=== PATIENT | male | born 1945 | race Caucasian/White ===

== ENCOUNTER 2017-07-09 11:37 | Emergency (ER) | payer SELFPAY ==
[2017-07-09 12:09] VITALS: TEMP 98.6
--- NOTE | 2017-07-09 12:28 | C.PDOC ---
History Of Present Illness LIMITED DUE TO DEMENTIA PER FAMILY, CO LEAKING PEG TUBE SINCE YEST. CURRENT PEG PLACED 1 YR AGO. STATES UNABLE TO GET MEDS IN TUBE. OTHERWISE PT AT BASELINE EXAM NONTOXIC NAD APPEARS COMFORTABLE ABD PEG IN PLACE. SOFT NT NO R/G SKIN NO INFXN REMAINDER NEG MDM DISTAL END W LEAKING TUBE CUT OFF, PORT REPLACED. +FLUSHING WO DIFF OR LEAKAGE. WILL XRAY Time Seen by Provider: 07/09/17 12:23 Chief Complaint (Nursing): Medical Clearance History Per: Family History/Exam Limitations: clinical condition (Dementia) Onset/Duration Of Symptoms: Days (1) Past Medical History Reviewed: Historical Data, Nursing Documentation, Vital Signs Vital Signs: Last Vital Signs Temp 98.6 F 07/09/17 11:59 Pulse 67 07/09/17 13:55 Resp 18 07/09/17 13:55 BP 204/108 H 07/09/17 13:55 Pulse Ox 99 07/09/17 13:55 - Medical History PMH: CVA (6 years ago.), HTN - [facility] Procedures INFLUENZA VACCINATION (06/17/13) VACCINATION NEC (06/17/13) Family History: States: No Known Family Hx - Social History Hx Tobacco Use: No Hx Alcohol Use: No Hx Substance Use: No - Immunization History Hx Tetanus Toxoid Vaccination: No Hx Influenza Vaccination: No Hx Pneumococcal Vaccination: No Review Of Systems Review Of Systems: ROS cannot be obtained secondary to pt's inabilty to answer questions. Constitutional: Positive for: Other ((+) leaking peg tube) Physical Exam - Physical Exam Appears: Non-toxic, No Acute Distress Skin: Warm, Dry, No Rash Head: Atraumatic, Normacephalic Eye(s): bilateral: Normal Inspection, PERRL, EOMI Oral Mucosa: Moist Respiratory: Normal Breath Sounds Gastrointestinal/Abdominal: Soft, No Tenderness, No Guarding, No Rebound, Other ((+) peg tube in place, no signs of infection) Extremity: No Swelling Neurological/Psych: Normal Speech, Normal Motor, Other (Patient at baseline as per family) ED Course And Treatment O2 Sat by Pulse Oximetry: 97 (RA) Pulse Ox Interpretation: Normal - Other Rad ABD X-Ray: Interpreted by Me (+CONTRAST GI LUMEN) - Physician Consult Information Time Consulting Physician Contacted: 12:35 Physician Contacted: Shane Sullivan Jr. Outcome Of Conversation: AWARE OF ER FINDINGS AND AGREES W PLAN. WILL FU OUTPT Progress - Data Reviewed Data Reviewed: Lab, Old records Medical Decision Making Medical Decision Making: PLAN: * X-Ray - Abdomen NOTE: DISTAL END W LEAKING TUBE CUT OFF, PORT REPLACED. +FLUSHING WO DIFF OR LEAKAGE. WILL XRAY Disposition Counseled Patient/Family Regarding: Studies Performed, Diagnosis, Need For Followup - Disposition Referrals: Shane Sullivan Jr., MD [Medical Doctor] - Disposition: HOME/ ROUTINE Disposition Time: 13:31 Condition: IMPROVED Instructions: How to Use and Care for Your PEG Tube (ED) Forms: [employer] (Thai) - Clinical Impression Clinical Impression: PEG tube malfunction - Scribe Statement The provider has reviewed the documentation as recorded by the Scribe Yi Joshi Provider Attestation: All medical record entries made by the Scribe were at my direction and personally dictated by me. I have reviewed the chart and agree that the record accurately reflects my personal performance of the history, physical exam, medical decision making, and the department course for this patient. I have also personally directed, reviewed, and agree with the discharge instructions and disposition.
[2017-07-09] MEDS ORDERED: Iohexol 240 (50 ml) PO ONE (12:31)
[2017-07-09] MEDS ORDERED: Iohexol 240 (50 ml) ONE (12:50)
--- NOTE | 2017-07-09 13:34 | RAD ---
HISTORY: PEG PLACEMENT COMPARISON: No prior. FINDINGS: BOWEL: Pathologist as noted: The mL of Omnipaque injected per PEG 15 to 20 minutes prior to this image No bowel obstruction. Contrast in non distended proximal small bowel loops left upper quadrant noted Elsewhere stool retention noted BONES: Thoraco lumbar spondylosis bilateral hip osteoarthrosis OTHER FINDINGS: None. IMPRESSION: Per no contrast per PEG opacifies unremarkable appearing non dilated small bowel loops Unrelated to this -stool retention suggested No bowel obstruction appreciated
[2017-07-09 13:55] VITALS: BP 204/108; PULSE 67; RESP 18
[2017-07-09 15:44] VITALS: O2SAT 97
== END 2017-07-09 16:49 | disposition home or self-care (01) ==
LOC: C.ER 11:37
DX: K94.23 Gastrostomy malfunction (principal); Y84.9 Medical procedure, unspecified as the cause of abnormal reaction of the patient, or of later complication, without mention of misadventure at the time of the procedure
CPT/HCPCS: 74018; 99284; Q9966

== ENCOUNTER 2017-11-29 19:15 | Observation (INO) | payer MEDICAID ==
--- NOTE | 2017-11-29 19:58 | C.PDOC ---
History Of Present Illness 71 year old male with PMHx of CVA 10 years ago with residual right sided hemiplegia, gastrostomy tube and tracheostomy tube. Patient is accompanied by his , as per patient's GT tube has been blocked for the past 2 days as he has been unable to feed or take his BP medications. also reports that patient has has a non productive cough for the past week. Patient's denies fever, chills, SOB, respiratory distress. Chief Complaint (Nursing): Abdominal Pain History Per: EMS, Family History/Exam Limitations: clinical condition Onset/Duration Of Symptoms: Days Current Symptoms Are (Timing): Still Present Location Of Pain/Discomfort: Diffuse Radiation Of Pain To:: None Quality Of Discomfort: Unable To Describe Associated Symptoms: denies: Fever, Nausea, Vomiting Exacerbating Factors: None Recent travel outside of the [place]: No Additional History Per: Patient Past Medical History Reviewed: Historical Data, Nursing Documentation, Vital Signs Vital Signs: Last Vital Signs Temp 98 F 11/30/17 05:23 Pulse 63 11/30/17 05:23 Resp 20 11/30/17 05:23 BP 153/80 H 11/30/17 05:23 Pulse Ox 99 11/30/17 05:23 - Medical History PMH: CVA (6 years ago.), HTN Denies: Chronic Kidney Disease Other Surgeries: gastrostomy and tracheostomy tubes placed - [facility] Procedures INFLUENZA VACCINATION (06/17/13) VACCINATION NEC (06/17/13) Family History: States: Unknown Family Hx - Social History Hx Tobacco Use: No Hx Alcohol Use: No Hx Substance Use: No - Immunization History Hx Tetanus Toxoid Vaccination: No Hx Influenza Vaccination: No Hx Pneumococcal Vaccination: No Review Of Systems Review Of Systems: ROS cannot be obtained secondary to pt's inabilty to answer questions. Physical Exam - Physical Exam Appears: Non-toxic, No Acute Distress, Other (cooperative, aphasic) Skin: Normal Color, Warm, Dry Head: Atraumatic, Normacephalic Eye(s): bilateral: Normal Inspection Oral Mucosa: Moist Neck: Normal ROM, Supple, Other (tracheostomy stoma in place) Chest: Symmetrical Cardiovascular: Rhythm Regular, No Murmur Respiratory: Normal Breath Sounds, No Rales, No Rhonchi, Wheezing (faint expiratory) Gastrointestinal/Abdominal: Soft, No Tenderness, Other (GT stoma in place with surroinding erythema, swelling around the entry site) Extremity: Capillary Refill (< 2 seconds) Extremity: Right: Other (contracted rigth upper extremity, complete paralysis right lower extremity), Bilateral: Normal Color And Temperature Pulses: Right Brachial: Normal, Left Radial: Normal, Left Dorsalis Pedis: Normal , Right Dorsalis Pedis: Normal Neurological/Psych: Oriented x3, Other (aphasic due to CVA 10 years ago) Gait: Unable To Assess ED Course And Treatment - Laboratory Results Result Diagrams: 11/29/17 20:18 11/29/17 20:18 O2 Sat by Pulse Oximetry: 95 (ON RA) Pulse Ox Interpretation: Normal Medical Decision Making Medical Decision Making: Impression: CVA s/p right sided hemiplegia long standing, clogged GT tube. URI complaints Plan: * Labs * GT replacement * CXR * reeval 20:11 - Attempted to remove GT tube however balloon was not deflated due to overall deterioration of GT tube, attempted to aspirate with luer lock syringe with no fluid return. Paged GI fellow. 20:25 - Spoke with GI fellow who recommends patient to be admitted to the Hospital and GI will see patient tomorrow Disposition - Disposition Disposition: HOSPITALIZED Disposition Time: 06:09 Condition: FAIR - Clinical Impression Clinical Impression: Gastrostomy tube dysfunction - Scribe Statement The provider has reviewed the documentation as recorded by the Scribe Chi Pinto All medical record entries made by the Scribe were at my direction and personally dictated by me. I have reviewed the chart and agree that the record accurately reflects my personal performance of the history, physical exam, medical decision making, and the department course for this patient. I have also personally directed, reviewed, and agree with the discharge instructions and disposition.
[2017-11-29 20:21] LABS: BASO # 0.1 K/uL (0.0-0.2); BASO % 0.9 % (0.0-2.0); EOS # 0.3 K/uL (0.0-0.7); EOS % 4.6 % (0.0-4.0); HEMOGLOBIN 15.4 g/dL (12.0-18.0); LYMPH # 1.8 K/uL (1.0-4.3); LYMPH % 31.8 % (20.0-40.0); MEAN CELL VOLUME 95.2 fL (80.0-94.0); MEAN CORPUSCULAR HEMOGLOBIN 33.4 pg (27.0-31.0); MEAN CORPUSCULAR HGB CONC 35.1 g/dL (33.0-37.0); MEAN PLATELET VOLUME 7.3 fL (7.2-11.7); MONO # 0.4 K/uL (0.0-0.8); MONO % 7.6 % (0.0-10.0); NEUT # 3.1 K/uL (1.8-7.0); NEUT % 55.1 % (50.0-75.0); NRBC % 0.1 % (0.0-2.0); RBC 4.62 Mil/uL (4.40-5.90); RED CELL DISTRIBUTION WIDTH 14.1 % (11.5-14.5); WHITE BLOOD COUNT 5.7 K/uL (4.8-10.8)
[2017-11-29 20:37] LABS: ALB/GLOB RATIO 0.8 (1.0-2.1); ALBUMIN 3.9 g/dL (3.5-5.0); ALT/SGPT 15 U/L (21-72); AST/SGOT 28 U/L (17-59); BLOOD UREA NITROGEN 18 mg/dL (9-20); CALCIUM 8.8 mg/dl (8.6-10.4); GFR AFRICAN-AMERICAN > 60; GFR NON-AFRICAN AMERICAN > 60
--- NOTE | 2017-11-29 21:17 | CP.PCM.HP ---
History of Present Illness - History of Present Illness History of Present Illness: CC: Gastrostomy tube malfunction 71M with past medical history of CVA (1999) with right sided hemiparesis of right lower and right upper extremities and HTN. Patient's family reported two days of PEG tube not working. Patient has not been able to have tube feeds or his blood pressure medications. Patient does not have nurses or aids to help him at home. He lives with his . Patient came in 2016 for PEG tube falling out and reinserted. PMH: CVA left patient with weakness in right UE and both LE, HTN, depression PSH: PEG tube insertion, tracheostomy Social Hx: former smoker (1ppd x 40 years, quit 1999), former ETOH use disorder (quit 8 years ago), denies illicit drug use, lives with his , used to work at clothing factory Family Hx: non-contributory Allergies: NKDA home meds: zoloft, metoprolol 25mg PO BID and enalapril PMD: Dr. Sullivan Present on Admission - Present on Admission Any Indicators Present on Admission: No History of DVT/PE: No History of Uncontrolled Diabetes: No Urinary Catheter: No Decubitus Ulcer Present: No Review of Systems - Review of Systems All systems: reviewed and no additional remarkable complaints except - Constitutional Constitutional: absent: Anorexia, Chills - EENT Eyes: absent: Blind Spots, Blurred Vision, Change in Vision, Discharge, Dry Eye - Cardiovascular Cardiovascular: absent: Chest Pain at Rest, Chest Pain with Activity, Irregular Heart Rhythm - Respiratory Respiratory: Cough. absent: Dyspnea, Hemoptysis, Dyspnea on Exertion, Pain on Inspiration - Musculoskeletal Musculoskeletal: absent: As Per HPI, Abnormal Gait Past Patient History - Infectious Disease Hx of Infectious Diseases: None - Past Medical History & Family History Past Medical History?: Yes - Past Social History Smoking Status: Former Smoker - CARDIAC Hx Hypertension: Yes - PULMONARY Hx Respiratory Disorders: No - NEUROLOGICAL HX Cerebrovascular Accident: Yes - HEENT Hx HEENT Problems: No - RENAL Hx Chronic Kidney Disease: No - ENDOCRINE/METABOLIC Hx Endocrine Disorders: No - HEMATOLOGICAL/ONCOLOGICAL Hx Blood Disorders: No - INTEGUMENTARY Hx Dermatological Problems: No - MUSCULOSKELETAL/RHEUMATOLOGICAL Hx Falls: No - GASTROINTESTINAL Other/Comment: post trach. feeding via PEG. - GENITOURINARY/GYNECOLOGICAL Hx Genitourinary Disorders: No - PSYCHIATRIC Hx Substance Use: No - SURGICAL HISTORY Other/Comment: PEG TUBE AND TRACHEOSTOMY. - ANESTHESIA Hx Anesthesia: No Meds Allergies/Adverse Reactions: Allergies Allergy/AdvReac Type Severity Reaction Status Date / Time No Known Allergies Allergy Verified 07/09/17 12:03 Physical Exam - Constitutional Appears: Non-toxic, No Acute Distress - Head Exam Head Exam: ATRAUMATIC, NORMAL INSPECTION, NORMOCEPHALIC - Eye Exam Eye Exam: EOMI, Normal appearance Pupil Exam: NORMAL ACCOMODATION, PERRL - ENT Exam ENT Exam: Mucous Membranes Moist, Normal Exam - Neck Exam Neck exam: Positive for: Normal Inspection - Respiratory Exam Respiratory Exam: Clear to Auscultation Bilateral, NORMAL BREATHING PATTERN - Cardiovascular Exam Cardiovascular Exam: REGULAR RHYTHM, +S1, +S2. absent: Bradycardia, Tachycardia - GI/Abdominal Exam GI & Abdominal Exam: Hypoactive Bowel Sounds, Soft, Tenderness (tenderness noted on physical exam ) Additional comments: PEG tube in place slight drainage at tube entrance site. No purulence - Extremities Exam Extremities exam: Positive for: full ROM, normal inspection. Negative for: pedal edema - Back Exam Back exam: FULL ROM, NORMAL INSPECTION. absent: CVA tenderness (L), CVA tenderness (R) - Neurological Exam Neurological exam: Alert, CN II-XII Intact, Normal Gait, Oriented x3 - Psychiatric Exam Psychiatric exam: Normal Affect, Normal Mood - Skin Skin Exam: Dry, Intact, Normal Color, Warm Results - Vital Signs Recent Vital Signs: Last Vital Signs Temp 98.0 F 11/29/17 19:19 Pulse 65 11/29/17 20:17 Resp 18 11/29/17 20:17 BP 212/100 H 11/29/17 20:17 Pulse Ox 95 11/29/17 20:27 - Labs Result Diagrams: 11/29/17 20:18 11/29/17 20:18 Labs: Laboratory Results - last 24 hr 11/29/17 11/29/17 20:18 20:18 WBC 5.7 RBC 4.62 Hgb 15.4 D Hct 44.0 MCV 95.2 H D MCH 33.4 H MCHC 35.1 RDW 14.1 Plt Count 258 MPV 7.3 Neut % (Auto) 55.1 Lymph % (Auto) 31.8 [place] % (Auto) 7.6 Eos % (Auto) 4.6 H Baso % (Auto) 0.9 Neut # (Auto) 3.1 Lymph # (Auto) 1.8 [place] # (Auto) 0.4 Eos # (Auto) 0.3 Baso # (Auto) 0.1 Sodium 144 Potassium 4.2 Chloride 104 Carbon Dioxide 28 Anion Gap 17 BUN 18 Creatinine 0.9 Est GFR ( Amer) > 60 Est GFR (Non-Af Amer) > 60 Random Glucose 71 L Calcium 8.8 Total Bilirubin 0.6 AST 28 ALT 15 L D Alkaline Phosphatase 132 H Total Protein 8.6 H Albumin 3.9 Globulin 4.8 H Albumin/Globulin Ratio 0.8 L Assessment & Plan - Assessment and Plan (Free Text) Assessment: 71M with past medical history of CVA fall precautions PEG tube malfunction GI consult: Dr. Saleem No tube feeds NPO D5/ 1/2 NS @75cc/hr HTN Metoprolol 10 mv IVP Q12H Hydralazine 10mg IVP once History of depression Zoloft, will hold until PEG is in place Tracheostomy maintain trach care Prophylaxis SCDs Heparin 5000 u Q8H discussed with Dr. Laurie Rodriguez DO PGY1 - Date & Time Date: 11/29/17 Time: 22:29
[2017-11-29] MEDS ORDERED: Metoprolol 1 mg/ml Inj IVP SCH ×3 (21:30→22:00)
[2017-11-29 23:20] LABS: PROTHROMBIN TIME 11.1 SECONDS (9.7-12.2)
[2017-11-29] MEDS: Dextrose 5%/0.45% NS 1,000 ML IV SCH (23:45)
[2017-11-30] MEDS: metroNIDAZOLE IV 500 mg/100 ml 500 MG/100 ML BAG IVPB SCH ×3 (00:16→16:07)
--- NOTE | 2017-11-30 07:58 | CP.PCM.PN ---
Subjective - Date & Time of Evaluation Date of Evaluation: 11/30/17 Time of Evaluation: 07:56 - Subjective Subjective: PGY1 Medicine Note for Dr. Sullivan Patient seen and examined at bedside this morning. Patient was admitted overnight. Patient complains of diffuse abdominal pain. He has no other complaints at this time. Denies fevers, chills, nausea, vomiting, diarrhea, chest pain, shortness of breath, palpitations, or headaches. Objective - Vital Signs/Intake and Output Vital Signs (last 24 hours): Temp Pulse Resp BP Pulse Ox 98 F 63 20 153/80 H 95 11/30/17 05:23 11/30/17 05:23 11/30/17 05:23 11/30/17 05:23 11/30/17 06:10 - Medications Medications: Current Medications Hydralazine HCl (Apresoline) 10 mg IVP Q8H [facility] Last Admin: 11/30/17 05:30 Dose: 10 mg Dextrose/Sodium Chloride (Dextrose 5%/0.45% Ns 1000 Ml) 1,000 mls @ 75 mls/hr IV .[id number] [facility] Last Admin: 11/29/17 23:45 Dose: 75 mls/hr Metronidazole (Flagyl) 500 mg in 100 mls @ 100 mls/hr IVPB Q8H [facility] PRN Reason: Protocol Last Admin: 11/30/17 07:01 Dose: 100 mls/hr - Labs Labs: 11/29/17 20:18 11/29/17 20:18 PT 11.1 SECONDS (9.7-12.2) 11/29/17 23:08 INR 1.0 11/29/17 23:08 APTT 39 SECONDS (21-34) H 11/29/17 23:08 - Constitutional Appears: Non-toxic, No Acute Distress, Cachectic, Chronically Ill - Head Exam Head Exam: ATRAUMATIC, NORMOCEPHALIC - Eye Exam Eye Exam: EOMI, Normal appearance - ENT Exam ENT Exam: Mucous Membranes Moist - Neck Exam Neck Exam: absent: Lymphadenopathy, Tenderness - Respiratory Exam Respiratory Exam: Clear to Ausculation Bilateral, NORMAL BREATHING PATTERN. absent: Accessory Muscle Use, Rales, Rhonchi, Wheezes, Respiratory Distress - Cardiovascular Exam Cardiovascular Exam: REGULAR RHYTHM, +S1, +S2 - GI/Abdominal Exam GI & Abdominal Exam: Firm, Tenderness (diffuse), Normal Bowel Sounds. absent: Distended, Guarding, Rigid, Soft Additional comments: PEG tube in place. Dressing is in place, c/d/i - Extremities Exam Extremities Exam: absent: Calf Tenderness, Pedal Edema - Neurological Exam Neurological Exam: Alert, Awake, CN II-XII Intact, Oriented x3 Neuro motor strength exam: Left Upper Extremity: 5, Right Upper Extremity: 0 ( residual from prior CVA), Left Lower Extremity: 5, Right Lower Extremity: 0 ( residual from prior CVA) Additional comments: right arm contracted. - Psychiatric Exam Psychiatric exam: Normal Affect, Normal Mood - Skin Skin Exam: Dry, Warm Assessment and Plan - Assessment and Plan (Free Text) Assessment: 71 year old male with a past medical history of CVA (1999) with right sided hemiparesis of right lower and right upper extremities and HTN presenting with a complaint of mal-functioning PEG tube and diffuse abdominal pain. Plan: Abdominal Pain/Malfunctioning PEG Tube GI consulted, Dr. Saleem - help appreciated * f/u recs CXR 11/29: No active pulmonary disease. Discoid atelectasis in the left lower lobe. Started on Flagyl 500mg IVPB q8h (started on 11/30) D5/half NS @75mL/hr NPO No tube feeds at this time. Hypertension Hydralazine 10mg IVP q8h Hx of Depression Home Zoloft on hole until PEG tube is functioning properly. Hx of CVA Residual right sided hemiparesis of lower and upper extremities. R upper extremity contracted. Continue to monitor Tracheostomy Maintain trach care Prophylactic Care Lovenox 40 SC daily SCDs Case discussed with Dr. Laurie Hendrix Rosaura PGY1
--- NOTE | 2017-11-30 08:36 | RAD ---
HISTORY: Sepsis Patient COMPARISON: 10/16/2015. FINDINGS: LUNGS: There are low lung volumes. There is discoid atelectasis in the left lower lobe. No focal consolidation. PLEURA: No significant pleural effusion identified, no pneumothorax apparent. CARDIOVASCULAR: Normal. OSSEOUS STRUCTURES: No significant abnormalities. VISUALIZED UPPER ABDOMEN: Normal. OTHER FINDINGS: None. IMPRESSION: No active pulmonary disease. Discoid atelectasis in the left lower lobe.
[2017-11-30] MEDS ORDERED: Glucagon Recombinant 1 mg Inj IM PRN (08:49)
[2017-11-30] MEDS ORDERED: Dextrose 50% SYRINGE Inj (50 ml) IV PRN (08:49)
[2017-11-30] MEDS: Enoxaparin 40 mg Syringe SC SCH (09:08)
[2017-11-30] MEDS ORDERED: Metoprolol 1 mg/ml Inj IVP SCH (10:00)
[2017-11-30] MEDS: Dextrose 5%/0.45% NS 1,000 ML IV SCH (13:05)
--- NOTE | 2017-11-30 14:21 | CP.PCM.CON ---
<Cody Centeno - Last Filed: 11/30/17 14:51> History of Present Illness - History of Present Illness History of Present Illness: GI Consult Note - Aspen Centeno PGY2 HPI: Patient is a 71 year-old male with past medical history of CVA (1999) with RUE and RLE hemiparesis, hypertension and depression that presented with report of PEG tube malfunction for the past 2 days. Per patient's , the tubing had developed a whole and was not able to be flushed. She reported that the PEG tube was endoscopically replaced 2 years prior and since then had been working appropriately. Patient hasn't been able to take his medications or have feeds via the PEG since the malfunction. Patient admitted to pain around the PEG site otherwise denied nausea/vomiting, fever, chills, chest pain, palpitations, SOB. 12point ROS as per above otherwise negative PMH: CVA, HTN, Depression PSH: PEG tube insertion, tracheostomy Allergies: NKDA Social Hx: former smoker (1ppd x 40 years, quit 1999), former ETOH use disorder (quit 8 years ago), denies illicit drug use, lives with his , used to work at [employer] Family Hx: non-contributory PMD: Dr. Sullivan Endoscopy history: PEG tube replacement in 2016 Past Patient History - Infectious Disease Hx of Infectious Diseases: None - Past Medical History & Family History Past Medical History?: Yes - Past Social History Smoking Status: Former Smoker - CARDIAC Hx Hypertension: Yes - PULMONARY Hx Respiratory Disorders: No - NEUROLOGICAL HX Cerebrovascular Accident: Yes - HEENT Hx HEENT Problems: No - RENAL Hx Chronic Kidney Disease: No - ENDOCRINE/METABOLIC Hx Endocrine Disorders: No - HEMATOLOGICAL/ONCOLOGICAL Hx Blood Disorders: No - INTEGUMENTARY Hx Dermatological Problems: No - MUSCULOSKELETAL/RHEUMATOLOGICAL Hx Falls: No - GASTROINTESTINAL Other/Comment: post trach. feeding via PEG. - GENITOURINARY/GYNECOLOGICAL Hx Genitourinary Disorders: No - PSYCHIATRIC Hx Substance Use: No - SURGICAL HISTORY Other/Comment: PEG TUBE AND TRACHEOSTOMY. - ANESTHESIA Hx Anesthesia: No Meds Allergies/Adverse Reactions: Allergies Allergy/AdvReac Type Severity Reaction Status Date / Time No Known Allergies Allergy Verified 07/09/17 12:03 - Medications Medications: Current Medications Dextrose (Dextrose 50% Inj) 0 ml IV STAT PRN; Protocol PRN Reason: Hypoglycemia Protocol Dextrose (Glutose 15) 0 gm PO ONCE PRN; Protocol PRN Reason: Hypoglycemia Protocol Enoxaparin Sodium (Lovenox) 40 mg SC DAILY [facility] Last Admin: 11/30/17 09:08 Dose: 40 mg Glucagon (Glucagen Diagnostic Kit) 0 mg IM STAT PRN; Protocol PRN Reason: Hypoglycemia Protocol Hydralazine HCl (Apresoline) 10 mg IVP Q8H [facility] Last Admin: 11/30/17 14:07 Dose: 10 mg Dextrose/Sodium Chloride (Dextrose 5%/0.45% Ns 1000 Ml) 1,000 mls @ 75 mls/hr IV .[id number] [facility] Last Admin: 11/30/17 13:05 Dose: 75 mls/hr Metronidazole (Flagyl) 500 mg in 100 mls @ 100 mls/hr IVPB Q8H [facility] PRN Reason: Protocol Last Admin: 11/30/17 07:01 Dose: 100 mls/hr Dextrose (Dextrose 5% In Water 1000 Ml) 1,000 mls @ 0 mls/hr IV .Q0M PRN; Protocol; Per Protocol PRN Reason: Hypoglycemia Protocol Physical Exam - Constitutional Appears: No Acute Distress - Head Exam Head Exam: ATRAUMATIC, NORMOCEPHALIC - Eye Exam Eye Exam: EOMI Pupil Exam: PERRL - ENT Exam ENT Exam: Mucous Membranes Moist - Respiratory Exam Respiratory Exam: Decreased Breath Sounds. absent: Rales, Rhonchi, Wheezes - Cardiovascular Exam Cardiovascular Exam: +S1, +S2. absent: Gallop, JVD, Rubs - GI/Abdominal Exam GI & Abdominal Exam: Soft. absent: Distended, Firm, Guarding, Rigid Additional comments: PEG tube site dry and intact, tubing with hole, nonfunctioning - Extremities Exam Extremities exam: Positive for: normal inspection. Negative for: pedal edema - Neurological Exam Neurological exam: Alert, Oriented x3 - Psychiatric Exam Psychiatric exam: Normal Affect, Normal Mood - Skin Skin Exam: Dry, Intact, Normal Color, Warm Results - Vital Signs Recent Vital Signs: Last Vital Signs Temp 97.6 F 11/30/17 08:15 Pulse 64 11/30/17 08:15 Resp 18 11/30/17 08:15 BP 141/68 11/30/17 08:15 Pulse Ox 96 11/30/17 08:15 - Labs Result Diagrams: 11/29/17 20:18 11/29/17 20:18 Labs: Laboratory Results - last 24 hr 11/29/17 11/29/17 11/29/17 20:18 20:18 23:08 WBC 5.7 RBC 4.62 Hgb 15.4 D Hct 44.0 MCV 95.2 H D MCH 33.4 H MCHC 35.1 RDW 14.1 Plt Count 258 MPV 7.3 Neut % (Auto) 55.1 Lymph % (Auto) 31.8 [place] % (Auto) 7.6 Eos % (Auto) 4.6 H Baso % (Auto) 0.9 Neut # (Auto) 3.1 Lymph # (Auto) 1.8 [place] # (Auto) 0.4 Eos # (Auto) 0.3 Baso # (Auto) 0.1 PT 11.1 INR 1.0 APTT 39 H Sodium 144 Potassium 4.2 Chloride 104 Carbon Dioxide 28 Anion Gap 17 BUN 18 Creatinine 0.9 Est GFR ( Amer) > 60 Est GFR (Non-Af Amer) > 60 Random Glucose 71 L Calcium 8.8 Total Bilirubin 0.6 AST 28 ALT 15 L D Alkaline Phosphatase 132 H Total Protein 8.6 H Albumin 3.9 Globulin 4.8 H Albumin/Globulin Ratio 0.8 L Assessment & Plan - Assessment and Plan (Free Text) Plan: 71yo male with history of CVA, HTN, Depression presents with report of PEG tube malfunctioning for past 2 days 1. PEG tube malfunction 2. Hx of CVA (1999) 3. Hypertension 4. Depression -Consent obtained over the phone by patient's by Dr. Abad, witnessed by nurse -PEG tube exchange at bedside with 20 Fr standard balloon replacement tube by Dr. Abad -May start free water flushes, meds and feeds via PEG tube -Further management as per primary team Patient seen and case discussed with attending, Dr. Alejo <Soo Alejo - Last Filed: 12/01/17 08:39> Meds - Medications Medications: Current Medications Dextrose (Dextrose 50% Inj) 0 ml IV STAT PRN; Protocol PRN Reason: Hypoglycemia Protocol Dextrose (Glutose 15) 0 gm PO ONCE PRN; Protocol PRN Reason: Hypoglycemia Protocol Enoxaparin Sodium (Lovenox) 40 mg SC DAILY [facility] Last Admin: 11/30/17 09:08 Dose: 40 mg Glucagon (Glucagen Diagnostic Kit) 0 mg IM STAT PRN; Protocol PRN Reason: Hypoglycemia Protocol Hydralazine HCl (Apresoline) 10 mg IVP Q8H [facility] Last Admin: 12/01/17 06:26 Dose: Not Given Dextrose/Sodium Chloride (Dextrose 5%/0.45% Ns 1000 Ml) 1,000 mls @ 75 mls/hr IV .[id number] [facility] Last Admin: 11/30/17 13:05 Dose: 75 mls/hr Metronidazole (Flagyl) 500 mg in 100 mls @ 100 mls/hr IVPB Q8H [facility] PRN Reason: Protocol Last Admin: 12/01/17 00:40 Dose: 100 mls/hr Dextrose (Dextrose 5% In Water 1000 Ml) 1,000 mls @ 0 mls/hr IV .Q0M PRN; Protocol; Per Protocol PRN Reason: Hypoglycemia Protocol Results - Vital Signs Recent Vital Signs: Last Vital Signs Temp 98.5 F 12/01/17 07:00 Pulse 68 12/01/17 07:00 Resp 20 12/01/17 07:00 BP 189/69 H 12/01/17 07:00 Pulse Ox 100 12/01/17 07:00 - Labs Result Diagrams: 12/01/17 06:24 12/01/17 06:24 Labs: Laboratory Results - last 24 hr 12/01/17 12/01/17 06:24 06:24 WBC 7.6 RBC 4.11 L Hgb 14.0 Hct 39.5 MCV 96.1 H MCH 34.0 H MCHC 35.4 RDW 14.2 Plt Count 206 MPV 7.7 Neut % (Auto) 73.1 Lymph % (Auto) 17.3 L [place] % (Auto) 8.5 Eos % (Auto) 0.4 Baso % (Auto) 0.7 Neut # (Auto) 5.5 Lymph # (Auto) 1.3 [place] # (Auto) 0.6 Eos # (Auto) 0.0 Baso # (Auto) 0.1 Sodium 141 Potassium 3.8 Chloride 104 Carbon Dioxide 26 Anion Gap 14 BUN 14 Creatinine 1.0 Est GFR ( Amer) > 60 Est GFR (Non-Af Amer) > 60 Random Glucose 83 Calcium 9.0 Phosphorus 3.3 Magnesium 1.9 Total Bilirubin 0.3 AST 33 ALT < 6 L D Alkaline Phosphatase 110 Total Protein 7.6 Albumin 3.4 L Globulin 4.1 H Albumin/Globulin Ratio 0.8 L Attending/Attestation - Attestation I have personally seen and examined this patient.: Yes I have fully participated in the care of the patient.: Yes I have reviewed all pertinent clinical information: Yes Notes (Text): 12/01/17 08:38 This is a 71 year old male with history of CVA, HTN, Depression presents with report of PEG tube malfunctioning for past 2 days s/p PEG tube exchange at bedside with 20 Fr standard balloon replacement tube -May start free water flushes, meds and feeds via PEG tube -Further management as per primary team - Aspiration precautions - Local PEG care - Will sign off. Please reconsult prn
[2017-11-30 16:27] VITALS: RESP 20
[2017-12-01] MEDS: metroNIDAZOLE IV 500 mg/100 ml 500 MG/100 ML BAG IVPB SCH ×2 (00:40→09:02)
[2017-12-01 06:41] LABS: BASO # 0.1 K/uL (0.0-0.2); BASO % 0.7 % (0.0-2.0); EOS % 0.4 % (0.0-4.0); LYMPH # 1.3 K/uL (1.0-4.3); LYMPH % 17.3 % (20.0-40.0); MEAN CELL VOLUME 96.1 fL (80.0-94.0); MEAN CORPUSCULAR HGB CONC 35.4 g/dL (33.0-37.0); MEAN PLATELET VOLUME 7.7 fL (7.2-11.7); MONO # 0.6 K/uL (0.0-0.8); MONO % 8.5 % (0.0-10.0); NEUT # 5.5 K/uL (1.8-7.0); NEUT % 73.1 % (50.0-75.0); NRBC % 0.1 % (0.0-2.0); RBC 4.11 Mil/uL (4.40-5.90); RED CELL DISTRIBUTION WIDTH 14.2 % (11.5-14.5); WHITE BLOOD COUNT 7.6 K/uL (4.8-10.8)
[2017-12-01 06:49] LABS: ALB/GLOB RATIO 0.8 (1.0-2.1); ALBUMIN 3.4 g/dL (3.5-5.0); ALT/SGPT < 6 U/L (21-72); AST/SGOT 33 U/L (17-59); BLOOD UREA NITROGEN 14 mg/dL (9-20); GFR AFRICAN-AMERICAN > 60; GFR NON-AFRICAN AMERICAN > 60
--- NOTE | 2017-12-01 07:03 | CP.PCM.PN ---
Subjective - Date & Time of Evaluation Date of Evaluation: 12/01/17 Time of Evaluation: 07:03 - Subjective Subjective: PGY1 Medicine Note for Dr. Sullivan Patient seen and examined at bedside this morning. Patient had PEG tube become dislodged at approximately 10:30 last night. PEG tube was re-inserted by overnight resident, Dr. Rodriguez. At approximately 5:00 this morning, the PEG tube became dislodged again. Patient is currently resting comfortably in bed. No other complaints at this time. Denies fevers, chills, nausea, vomiting, diarrhea , constipation, chest pain, shortness of breath, palpitations, runny nose or abdominal pain. Objective - Vital Signs/Intake and Output Vital Signs (last 24 hours): Temp Pulse Resp BP Pulse Ox 98.7 F 65 20 153/76 H 100 11/30/17 23:20 12/01/17 01:00 11/30/17 23:20 11/30/17 23:20 11/30/17 23:20 - Medications Medications: Current Medications Dextrose (Dextrose 50% Inj) 0 ml IV STAT PRN; Protocol PRN Reason: Hypoglycemia Protocol Dextrose (Glutose 15) 0 gm PO ONCE PRN; Protocol PRN Reason: Hypoglycemia Protocol Enoxaparin Sodium (Lovenox) 40 mg SC DAILY [facility] Last Admin: 11/30/17 09:08 Dose: 40 mg Glucagon (Glucagen Diagnostic Kit) 0 mg IM STAT PRN; Protocol PRN Reason: Hypoglycemia Protocol Hydralazine HCl (Apresoline) 10 mg IVP Q8H [facility] Last Admin: 12/01/17 06:26 Dose: Not Given Dextrose/Sodium Chloride (Dextrose 5%/0.45% Ns 1000 Ml) 1,000 mls @ 75 mls/hr IV .[id number] [facility] Last Admin: 11/30/17 13:05 Dose: 75 mls/hr Metronidazole (Flagyl) 500 mg in 100 mls @ 100 mls/hr IVPB Q8H [facility] PRN Reason: Protocol Last Admin: 12/01/17 00:40 Dose: 100 mls/hr Dextrose (Dextrose 5% In Water 1000 Ml) 1,000 mls @ 0 mls/hr IV .Q0M PRN; Protocol; Per Protocol PRN Reason: Hypoglycemia Protocol - Labs Labs: 12/01/17 06:24 12/01/17 06:24 PT 11.1 SECONDS (9.7-12.2) 11/29/17 23:08 INR 1.0 11/29/17 23:08 APTT 39 SECONDS (21-34) H 11/29/17 23:08 - Constitutional Appears: Non-toxic, No Acute Distress - Head Exam Head Exam: ATRAUMATIC, NORMOCEPHALIC - Eye Exam Eye Exam: Normal appearance - ENT Exam ENT Exam: Mucous Membranes Moist - Neck Exam Neck Exam: absent: Lymphadenopathy - Respiratory Exam Respiratory Exam: Clear to Ausculation Bilateral, NORMAL BREATHING PATTERN. absent: Accessory Muscle Use, Rales, Rhonchi, Wheezes, Respiratory Distress - Cardiovascular Exam Cardiovascular Exam: REGULAR RHYTHM, +S1, +S2 - GI/Abdominal Exam GI & Abdominal Exam: Soft, Tenderness (mild LLQ pain), Normal Bowel Sounds. absent: Distended, Firm, Guarding, Rigid Additional comments: dressing over PEG tube hole c/d/i. No PEG tube in place at this time. GI coming to eval this morning. - Extremities Exam Extremities Exam: absent: Calf Tenderness, Pedal Edema Additional comments: right arm contracted (baseline) - Neurological Exam Neurological Exam: Alert, Awake Additional comments: Right arm contracted (baseline) - Psychiatric Exam Psychiatric exam: Normal Affect, Normal Mood - Skin Skin Exam: Dry, Warm Assessment and Plan - Assessment and Plan (Free Text) Assessment: 71 year old male with a past medical history of CVA (1999) with right sided hemiparesis of right lower and right upper extremities and HTN presenting with a complaint of mal-functioning PEG tube and diffuse abdominal pain. Plan: Abdominal Pain/Malfunctioning PEG Tube GI consulted, Dr. Saleem - help appreciated * Per GI note, * PEG tube re-inserted at bedside by GI fellow, Dr. Abad; functioning approriately * PEG tube exchange at bedside with 20 Fr standard balloon replacement tube by Dr. Abad * May start free water flushes, meds and feeds via PEG tube * Flush PEG with 30 cc water q8 hours CXR 11/29: No active pulmonary disease. Discoid atelectasis in the left lower lobe. Started on Flagyl 500mg IVPB q8h (started on 11/30) D5/half NS @75mL/hr NPO Hypertension Resume home Enalapril Maleate 20mg PEG daily Resume home Metoprolol Tart 25mg PEG BID Hydralazine 10mg IVP prn for SBP>160 Hx of Depression Resume home Zoloft 25mg PEG BID Hx of CVA Residual right sided hemiparesis of lower and upper extremities. R upper extremity contracted. Continue to monitor Tracheostomy Maintain trach care Prophylactic Care Lovenox 40 SC daily SCDs Case discussed with Dr. Laurie Hendrix Rosaura PGY1
[2017-12-01 07:47] VITALS: TEMP 98.5
--- NOTE | 2017-12-01 09:07 | CP.PCM.PN ---
<Cody Centeno - Last Filed: 12/01/17 09:03> Subjective - Date & Time of Evaluation Date of Evaluation: 12/01/17 Time of Evaluation: 09:03 - Subjective Subjective: GI Progress note - Aspen Centeno PGY2 Patient seen and examined at bedside this morning. Per nursing, patient's PEG tube dislodged at approximately 10:30pm last night and was re-inserted by overnight resident however once again became dislodged at approximately 5am. PEG tube re-inserted at bedside by GI fellow, Dr. Abad. 12point ROS as per above otherwise negative Objective - Vital Signs/Intake and Output Vital Signs (last 24 hours): Temp Pulse Resp BP Pulse Ox 98.5 F 68 20 189/69 H 100 12/01/17 07:00 12/01/17 07:00 12/01/17 07:00 12/01/17 07:00 12/01/17 07:00 - Medications Medications: Current Medications Dextrose (Dextrose 50% Inj) 0 ml IV STAT PRN; Protocol PRN Reason: Hypoglycemia Protocol Dextrose (Glutose 15) 0 gm PO ONCE PRN; Protocol PRN Reason: Hypoglycemia Protocol Enoxaparin Sodium (Lovenox) 40 mg SC DAILY [facility] Last Admin: 11/30/17 09:08 Dose: 40 mg Glucagon (Glucagen Diagnostic Kit) 0 mg IM STAT PRN; Protocol PRN Reason: Hypoglycemia Protocol Hydralazine HCl (Apresoline) 10 mg IVP Q8H [facility] Last Admin: 12/01/17 06:26 Dose: Not Given Dextrose/Sodium Chloride (Dextrose 5%/0.45% Ns 1000 Ml) 1,000 mls @ 75 mls/hr IV .[id number] [facility] Last Admin: 11/30/17 13:05 Dose: 75 mls/hr Dextrose (Dextrose 5% In Water 1000 Ml) 1,000 mls @ 0 mls/hr IV .Q0M PRN; Protocol; Per Protocol PRN Reason: Hypoglycemia Protocol - Labs Labs: 12/01/17 06:24 12/01/17 06:24 PT 11.1 SECONDS (9.7-12.2) 11/29/17 23:08 INR 1.0 11/29/17 23:08 APTT 39 SECONDS (21-34) H 11/29/17 23:08 - Constitutional Appears: No Acute Distress - Head Exam Head Exam: ATRAUMATIC, NORMOCEPHALIC - Eye Exam Eye Exam: EOMI, PERRL - ENT Exam ENT Exam: Mucous Membranes Moist - Cardiovascular Exam Cardiovascular Exam: +S1, +S2. absent: Gallop, JVD, Rubs - GI/Abdominal Exam GI & Abdominal Exam: Soft. absent: Distended, Firm, Guarding, Rigid, Rebound Additional comments: PEG tube re-inserted, site is clean, dry and intact; - Neurological Exam Neurological Exam: Alert, Awake - Skin Skin Exam: Dry, Intact, Normal Color, Warm Assessment and Plan - Assessment and Plan (Free Text) Plan: 71yo male with history of CVA, HTN, Depression presents with report of PEG tube malfunctioning for past 2 days 1. PEG tube malfunction 2. Hx of CVA (1999) 3. Hypertension 4. Depression -PEG tube re-inserted at bedside by GI fellow, Dr. Abad; functioning approriately -Consent obtained over the phone by patient's by Dr. Abad, witnessed by nurse -PEG tube exchange at bedside with 20 Fr standard balloon replacement tube by Dr. Abad -May start free water flushes, meds and feeds via PEG tube -Further management as per primary team Patient seen and case discussed with attending, Dr. Peters <Gonsalo Peters - Last Filed: 12/01/17 09:16> Objective - Vital Signs/Intake and Output Vital Signs (last 24 hours): Temp Pulse Resp BP Pulse Ox 98.5 F 68 20 189/69 H 100 12/01/17 07:00 12/01/17 07:00 12/01/17 07:00 12/01/17 07:00 12/01/17 07:00 - Medications Medications: Current Medications Dextrose (Dextrose 50% Inj) 0 ml IV STAT PRN; Protocol PRN Reason: Hypoglycemia Protocol Dextrose (Glutose 15) 0 gm PO ONCE PRN; Protocol PRN Reason: Hypoglycemia Protocol Enoxaparin Sodium (Lovenox) 40 mg SC DAILY [facility] Last Admin: 12/01/17 09:08 Dose: 40 mg Glucagon (Glucagen Diagnostic Kit) 0 mg IM STAT PRN; Protocol PRN Reason: Hypoglycemia Protocol Hydralazine HCl (Apresoline) 10 mg IVP Q8H [facility] Last Admin: 12/01/17 06:26 Dose: Not Given Dextrose/Sodium Chloride (Dextrose 5%/0.45% Ns 1000 Ml) 1,000 mls @ 75 mls/hr IV .[id number] [facility] Last Admin: 11/30/17 13:05 Dose: 75 mls/hr Dextrose (Dextrose 5% In Water 1000 Ml) 1,000 mls @ 0 mls/hr IV .Q0M PRN; Protocol; Per Protocol PRN Reason: Hypoglycemia Protocol - Labs Labs: 12/01/17 06:24 12/01/17 06:24 PT 11.1 SECONDS (9.7-12.2) 11/29/17 23:08 INR 1.0 11/29/17 23:08 APTT 39 SECONDS (21-34) H 11/29/17 23:08 Attending/Attestation - Attestation I have personally seen and examined this patient.: Yes I have fully participated in the care of the patient.: Yes I have reviewed all pertinent clinical information, including history, physical exam and plan: Yes Notes (Text): 12/01/17 09:14 I have seen and examined patient with GI fellow and medical technicians. Feeding tube dislodgement from overnight noted, replaced at bedside with 20 F tube. Patient currently tolerating tube feeding without difficulty. No reported abdominal pain, nausea, vomiting. CVA Aphasia s/p PEG replacement HTN Depression - Continue with tube feeding as tolerated, monitor for residuals - Flush PEG with 30 cc water q8 hours - Replace dressing daily - Further inpatient plan as per medical team. No additional GI intervention, will sign off case. Please reconsult as necessary, thank you.
[2017-12-01] MEDS: Enoxaparin 40 mg Syringe SC SCH (09:08)
--- NOTE | 2017-12-01 13:23 | CP.PCM.DIS ---
Provider - Provider Date of Admission: 11/29/17 20:23 Attending physician: Shane Sullivan Jr, MD Consults: GI - Fran Time Spent in preparation of Discharge (in minutes): 20 Hospital Course - Lab Results Lab Results: Most Recent Lab Values WBC 7.6 K/uL (4.8-10.8) 12/01/17 06:24 RBC 4.11 Mil/uL (4.40-5.90) L 12/01/17 06:24 Hgb 14.0 g/dL (12.0-18.0) 12/01/17 06:24 Hct 39.5 % (35.0-51.0) 12/01/17 06:24 MCV 96.1 fL (80.0-94.0) H 12/01/17 06:24 MCH 34.0 pg (27.0-31.0) H 12/01/17 06:24 MCHC 35.4 g/dL (33.0-37.0) 12/01/17 06:24 RDW 14.2 % (11.5-14.5) 12/01/17 06:24 Plt Count 206 K/uL (130-400) 12/01/17 06:24 MPV 7.7 fL (7.2-11.7) 12/01/17 06:24 Neut % (Auto) 73.1 % (50.0-75.0) 12/01/17 06:24 Lymph % (Auto) 17.3 % (20.0-40.0) L 12/01/17 06:24 [place] % (Auto) 8.5 % (0.0-10.0) 12/01/17 06:24 Eos % (Auto) 0.4 % (0.0-4.0) 12/01/17 06:24 Baso % (Auto) 0.7 % (0.0-2.0) 12/01/17 06:24 Neut # (Auto) 5.5 K/uL (1.8-7.0) 12/01/17 06:24 Lymph # (Auto) 1.3 K/uL (1.0-4.3) 12/01/17 06:24 [place] # (Auto) 0.6 K/uL (0.0-0.8) 12/01/17 06:24 Eos # (Auto) 0.0 K/uL (0.0-0.7) 12/01/17 06:24 Baso # (Auto) 0.1 K/uL (0.0-0.2) 12/01/17 06:24 PT 11.1 SECONDS (9.7-12.2) 11/29/17 23:08 INR 1.0 11/29/17 23:08 APTT 39 SECONDS (21-34) H 11/29/17 23:08 Sodium 141 mmol/L (132-148) 12/01/17 06:24 Potassium 3.8 mmol/L (3.6-5.2) 12/01/17 06:24 Chloride 104 mmol/L (98-107) 12/01/17 06:24 Carbon Dioxide 26 mmol/L (22-30) 12/01/17 06:24 Anion Gap 14 (10-20) 12/01/17 06:24 BUN 14 mg/dL (9-20) 12/01/17 06:24 Creatinine 1.0 mg/dL (0.8-1.5) 12/01/17 06:24 Est GFR ( Amer) > 60 12/01/17 06:24 Est GFR (Non-Af Amer) > 60 12/01/17 06:24 Random Glucose 83 mg/dL (75-110) 12/01/17 06:24 Calcium 9.0 mg/dl (8.6-10.4) 12/01/17 06:24 Phosphorus 3.3 mg/dL (2.5-4.5) 12/01/17 06:24 Magnesium 1.9 mg/dL (1.6-2.3) 12/01/17 06:24 Total Bilirubin 0.3 mg/dL (0.2-1.3) 12/01/17 06:24 AST 33 U/L (17-59) 12/01/17 06:24 ALT < 6 U/L (21-72) L D 12/01/17 06:24 Alkaline Phosphatase 110 U/L (38-126) 12/01/17 06:24 Total Protein 7.6 g/dL (6.3-8.3) 12/01/17 06:24 Albumin 3.4 g/dL (3.5-5.0) L 12/01/17 06:24 Globulin 4.1 gm/dL (2.2-3.9) H 12/01/17 06:24 Albumin/Globulin Ratio 0.8 (1.0-2.1) L 12/01/17 06:24 - Hospital Course Hospital Course: As per admission documentation 71M with past medical history of CVA (1999) with right sided hemiparesis of right lower and right upper extremities and HTN. Patient's family reported two days of PEG tube not working. Patient has not been able to have tube feeds or his blood pressure medications. Patient does not have nurses or aids to help him at home. He lives with his . Patient came in 2015 for PEG tube falling out and reinserted. Patient denies nausea, vomiting. Patient admits to right upper quadrant and left upper quadrant abdominal pain. Patient has normal bowel movements. Patient denied dysuria, polyuria, hematuria Hospital course Patient had PEG tube exchange at bedside with 20 Fr standard balloon replacement tube by Dr. Abad. Consent obtained by patient's over the phone. Patient had PEG fall out twice afterwards, re-inserted by night resident and second time re-evaluated/new tube by GI. New tube was functioning properly and patient had no complaints. Patient was discharged home on 12/01 with the following instructions. Discharge Instructions Patient is to be discharged home per Dr. Sullivan. Patient is to follow up with Dr. Sullivan as needed. Patient is being discharged home on no new medications and is to continue taking his medications as previously prescribed. If patient experiences any new or worsening symptoms, please go directly to the nearest emergency facility. Thank you and take care. This is just a brief summary of the patient's hospital course. For full detail, please see EMR. Discharge Exam - Head Exam Head Exam: ATRAUMATIC, NORMOCEPHALIC - Eye Exam Eye Exam: Normal appearance - ENT Exam ENT Exam: Mucous Membranes Moist - Neck Exam Additional comments: Tracheostomy - Respiratory Exam Respiratory Exam: Clear to PA & Lateral, NORMAL BREATHING PATTERN, UNREMARKABLE. absent: Accessory Muscle Use, Rales, Rhonchi, Wheezes, Respiratory Distress - Cardiovascular Exam Cardiovascular Exam: REGULAR RHYTHM, +S1, +S2 - GI/Abdominal Exam GI & Abdominal Exam: Soft. absent: Distended, Firm, Guarding, Rebound, Rigid, Tenderness Additional comments: PEG tube in place. Dressing c/d/i - Extremities Exam Extremities exam: pedal pulses present - Neurological Exam Neurological exam: Alert, CN II-XII Intact, Oriented x3 - Psychiatric Exam Psychiatric exam: Normal Affect, Normal Mood - Skin Skin Exam: Dry, Warm Discharge Plan - Follow Up Plan Condition: FAIR Disposition: HOME/ ROUTINE Additional Instructions: Patient is to be discharged home per Dr. Sullivan. Patient is to follow up with Dr. Sullivan as needed. Patient is being discharged home on no new medications and is to continue taking his medications as previously prescribed. If patient experiences any new or worsening symptoms, please go directly to the nearest emergency facility. Thank you and take care. Referrals: Shane Sullivan Jr., MD [Medical Doctor] -
[2017-12-01] MEDS: Dextrose 5%/0.45% NS 1,000 ML IV SCH (13:49)
[2017-12-01 15:36] VITALS: BP 164/96; PULSE 67; O2SAT 96
== END 2017-12-01 17:04 | disposition home or self-care (01) ==
LOC: C.ER 19:15 → C.9E 20:23 → C.3T 21:05 → C.5S 11-30 01:45
PROVIDERS: ADMIT Internal Medicine; ATTEND Internal Medicine
DX: K94.23 Gastrostomy malfunction (principal); R47.01 Aphasia; R63.3 Feeding difficulties; R10.12 Left upper quadrant pain; F32.9 Major depressive disorder, single episode, unspecified; I10 Essential (primary) hypertension; I69.351 Hemiplegia and hemiparesis following cerebral infarction affecting right dominant side; J06.9 Acute upper respiratory infection, unspecified; Z87.891 Personal history of nicotine dependence; Z79.899 Other long term (current) drug therapy
CPT/HCPCS: 36415; 43760; 71045; 80053; 83735; 84100; 85025; 85610; 85730; 96374; 97163; 99285; G0378; G8978; G8979; G8983; J0360; J1650; J7042; J7070

== ENCOUNTER 2017-12-02 09:57 | Emergency (ER) | payer MEDICAID, OTHER ==
--- NOTE | 2017-12-02 10:48 | C.PDOC ---
History Of Present Illness Wilson Valle is a 71-year-old male brought to the ED for evaluation of PEG tube malfunction. Of note, patient was recently seen here for the same complaint, had the PEG tube re-inserted, and was discharged home yesterday. Family brought the patient in today because they noticed the tube was out again this morning, and they were unable to give meds/fluids as usual. Otherwise patient has no fevers, vomiting, diarrhea, or other complaints. History provided by family as patient is nonverbal. Time Seen by Provider: 12/02/17 10:13 Chief Complaint (Nursing): Abdominal Pain History Per: Family History/Exam Limitations: no limitations Onset/Duration Of Symptoms: Hrs Current Symptoms Are (Timing): Still Present Past Medical History Reviewed: Historical Data, Nursing Documentation, Vital Signs Vital Signs: Last Vital Signs Temp 98 F 12/02/17 17:25 Pulse 78 12/02/17 17:25 Resp 18 12/02/17 17:25 BP 170/76 H 12/02/17 17:25 Pulse Ox 98 12/02/17 17:25 - Medical History PMH: CVA (6 years ago.), HTN Denies: Chronic Kidney Disease Other Surgeries: Tracheostomy, PEG tube placement - [facility] Procedures INFLUENZA VACCINATION (06/17/13) VACCINATION NEC (06/17/13) Family History: States: Unknown Family Hx - Social History Hx Tobacco Use: No Hx Alcohol Use: No Hx Substance Use: No - Immunization History Hx Tetanus Toxoid Vaccination: No Hx Influenza Vaccination: No Hx Pneumococcal Vaccination: No Review Of Systems Except As Marked, All Systems Reviewed And Found Negative. Constitutional: Positive for: Other (PEG tube malfunction). Negative for: Fever Gastrointestinal: Negative for: Vomiting, Diarrhea Physical Exam - Physical Exam Appears: Non-toxic, No Acute Distress, Other (Awake, nonverbal) Skin: Normal Color, Warm, Dry Head: Atraumatic, Normacephalic Eye(s): bilateral: Normal Inspection, PERRL, EOMI Nose: Normal Oral Mucosa: Moist Neck: Normal ROM, Trachea Midline, Other (tracheostomy stoma in place) Chest: Symmetrical Cardiovascular: Rhythm Regular Respiratory: Normal Breath Sounds, No Rales, No Rhonchi, No Wheezing Gastrointestinal/Abdominal: Soft, No Tenderness, No Distention, Other (Dressing over site of PEG tube) Extremity: No Tenderness, No Deformity, No Swelling, Other (Contracted right upper extremity) Pulses: Left Radial: Normal, Right Radial: Normal Neurological/Psych: Other (Nonverbal, RLE paralysis due to old CVA) ED Course And Treatment ECG: Interpreted By Me ECG Rhythm: Sinus Rhythm ECG Interpretation: No Acute Changes Rate From EC O2 Sat by Pulse Oximetry: 98 (RA) Pulse Ox Interpretation: Normal Progress Note: Call placed to Dr Peters. Case discussed and patient evaluated by GI resident who replaced PEG tube. and agree with discharge. Patient treated with metoprol and enalapril via PEG. Treated with clonidine for increase B/P. Discharged in stable condition. Lungs clear Medical Decision Making Medical Decision Making: Paged Dr. Peters, GI fellow will come to evaluate patient in the ED. GI fellow evaluated patient and re-inserted PEG tube. Patients blood pressure found to be 180/100. Missed doses of medications this AM as per family. Will give 20 mg Vasotec and 25 mg Lopressor PO. Patient is medically stable for discharge home. Counseled family regarding proper PEG tube management and instructions for giving medications. Advised patient to follow up with primary doctor or cracker sprayer for further evaluation. Disposition Counseled Patient/Family Regarding: Diagnosis, Need For Followup - Disposition Referrals: Gonsalo Peters MD [Staff Provider] - Disposition: HOME/ ROUTINE Disposition Time: 14:20 Condition: STABLE Additional Instructions: Follow up with PMD for further evaluation Instructions: Enteral Feeding, How to Give a Tube Feeding Forms: [facility] (Persian) - POA Present On Arrival: None - Clinical Impression Clinical Impression: PEG tube malfunction - PA / SOFTWARE ENGINEERING ANALYST / Resident Statement MD/DO has reviewed & agrees with the documentation as recorded. - Scribe Statement The provider has reviewed the documentation as recorded by the Scribe (Zaira Dhaliwal) All medical record entries made by the Scribe were at my direction and personally dictated by me. I have reviewed the chart and agree that the record accurately reflects my personal performance of the history, physical exam, medical decision making, and the department course for this patient. I have also personally directed, reviewed, and agree with the discharge instructions and disposition.
[2017-12-02] MEDS ORDERED: Bacitracin 500 Units/gm Oint Foilpak UD ONE (11:31)
--- NOTE | 2017-12-02 13:29 | PCM.PROC ---
Procedures Attestation:: I certify that I have explained the specified Operation(s) or Procedure(s), risks, benefits and reasonable alternatives to the Patient and/or other person responsible. The opportunity was given to ask questions and all questions answered - Feeding Tube Replacement Type of Tube: gastrostomy Insertion Site Prior to Procedure: clean Tube Used for Reinsertion: other ([employer] staight G-tube replacement) Romanian Tube Size (F): 20 Balloon Size (mis): 6 Verification of Placement: auscultation, other (gastric aspirate ) Tube Secured by: attachment device Patient Tolerated Procedure: well, no complications
[2017-12-02 17:45] VITALS: BP 170/76; PULSE 78; RESP 18; TEMP 98; O2SAT 98
--- NOTE | 2017-12-03 19:26 | CARD ---
APPROVED REPORT EKG Measurement Heart [id number] ID [id number] <Conclusion> Normal sinus rhythm Left ventricular hypertrophy with repolarization abnormality Abnormal ECG
== END 2017-12-02 17:45 | disposition home or self-care (01) ==
LOC: C.ER 09:57
DX: K94.23 Gastrostomy malfunction (principal); I10 Essential (primary) hypertension; Z86.73 Personal history of transient ischemic attack (TIA), and cerebral infarction without residual deficits

== ENCOUNTER 2018-03-26 13:16 | Inpatient (IN) | payer OTHER ==
[2018-03-26 14:12] LABS: BASO % 0.5 % (0.0-2.0); EOS # 0.1 K/uL (0.0-0.7); EOS % 1.6 % (0.0-4.0); LYMPH # 1.1 K/uL (1.0-4.3); LYMPH % 15.8 % (20.0-40.0); MEAN CELL VOLUME 95.1 fL (80.0-94.0); MEAN CORPUSCULAR HEMOGLOBIN 33.1 pg (27.0-31.0); MEAN CORPUSCULAR HGB CONC 34.8 g/dL (33.0-37.0); MEAN PLATELET VOLUME 7.6 fL (7.2-11.7); MONO # 0.6 K/uL (0.0-0.8); MONO % 7.9 % (0.0-10.0); NEUT # 5.3 K/uL (1.8-7.0); NEUT % 74.2 % (50.0-75.0); NRBC % 0.1 % (0.0-2.0); RBC 4.52 Mil/uL (4.40-5.90); WHITE BLOOD COUNT 7.1 K/uL (4.8-10.8)
[2018-03-26 14:24] LABS: BLOOD UREA NITROGEN 18 mg/dL (9-20); CALCIUM 9.7 mg/dl (8.6-10.4); GFR NON-AFRICAN AMERICAN > 60
[2018-03-26 14:31] LABS: ALB/GLOB RATIO 0.9 (1.0-2.1); ALBUMIN 4.2 g/dL (3.5-5.0); ALT/SGPT 18 U/L (21-72); AST/SGOT 37 U/L (17-59)
[2018-03-26] MEDS ORDERED: Heparin25000 units/250ml 1/2NS 25,000 UNITS/250 ML BAG IV ONE (15:29)
[2018-03-26 15:49] LABS: INR 1.1; PROTHROMBIN TIME 11.7 SECONDS (9.7-12.2)
[2018-03-26 16:27] VITALS: BMI 19.4
--- NOTE | 2018-03-26 17:20 | C.PDOC ---
History Of Present Illness 72-year-old male, presents to the emergency department with complaints of right foot discomfort and pain, which has been increasing x1 week. Patient has a Hx of CVA and has been bed bound for 11 years. No fever. Chief Complaint (Nursing): Lower Extremity Problem/Injury History Per: Patient History/Exam Limitations: no limitations Past Medical History Reviewed: Historical Data, Nursing Documentation, Vital Signs Vital Signs: Last Vital Signs Temp 98.5 F 03/26/18 13:26 Pulse 82 03/26/18 16:10 Resp 18 03/26/18 16:10 BP 168/62 H 03/26/18 16:10 Pulse Ox 100 03/26/18 16:10 - Medical History PMH: CVA (6 years ago.), HTN Denies: Chronic Kidney Disease - [facility] Procedures INFLUENZA VACCINATION (06/17/13) VACCINATION NEC (06/17/13) Family History: States: No Known Family Hx - Social History Hx Tobacco Use: No Hx Alcohol Use: No Hx Substance Use: No - Immunization History Hx Tetanus Toxoid Vaccination: No Hx Influenza Vaccination: No Hx Pneumococcal Vaccination: No Review Of Systems Constitutional: Negative for: Fever Musculoskeletal: Positive for: Foot Pain Physical Exam - Physical Exam Appears: Non-toxic, No Acute Distress Skin: Warm, Dry, No Rash Head: Atraumatic, Normacephalic Eye(s): bilateral: Normal Inspection Nose: Normal Oral Mucosa: Moist Lips: Normal Appearing Neck: Normal ROM, Other (tracheostomy wound) Cardiovascular: Rhythm Regular, No Murmur Respiratory: Normal Breath Sounds, No Accessory Muscle Use Gastrointestinal/Abdominal: Soft, No Tenderness, Other (peg tube) Extremity: Other (Extremities contracted. right lower extremity, cool and dusky.) Neurological/Psych: Oriented x3, Normal Speech ED Course And Treatment - Laboratory Results Result Diagrams: 03/26/18 14:09 03/26/18 14:09 O2 Sat by Pulse Oximetry: 100 Pulse Ox Interpretation: Normal (RA) Medical Decision Making Medical Decision Making: Vascular called about diminished arterial blood flow in lower extremity PMD Dr Sullivan made aware. Dr Melendez was consulted, evaluated pt at bedside in ED, recommends Heparin Resident paged. Pending call back Disposition - Disposition Disposition: HOSPITALIZED Disposition Time: 15:20 Condition: GUARDED - Clinical Impression Clinical Impression: Arterial insufficiency of lower extremity - Scribe Statement The provider has reviewed the documentation as recorded by the Scribe (Antolin Velasco) Provider Attestation: All medical record entries made by the Scribe were at my direction and personally dictated by me. I have reviewed the chart and agree that the record accurately reflects my personal performance of the history, physical exam, medical decision making, and the department course for this patient. I have also personally directed, reviewed, and agree with the discharge instructions and disposition.
--- NOTE | 2018-03-26 18:39 | CP.PCM.CON ---
History of Present Illness - History of Present Illness History of Present Illness: Vascular surgery consult note for Dr. Umm Jones, PGY-2 Pt S & E at bedside at 1630. History as per -pt is aphasic 72M w/PMH sig for CVA w/R hemiparesis & contractures consulted for diminished arterial blood flow of RLE. Pt' s reports that she has noted darkening of right foot with new small ulcers and coldness x a few days. reports no other changes patient's in behavior, bowel or bladder, F & C, N & V, other complaints noted. ROS limited due to pt aphasia. PMH: CVA w/R hemiparesis & contractures, HTN, Depression PSH: PEG tube, tracheostomy All:NKDA SH: hx of tobacco & ETOH abuse, lives with , non verbal & non ambulatory Review of Systems - Review of Systems Systems not reviewed;Unavailable: Other (aphasic) All systems: reviewed and no additional remarkable complaints except - Constitutional Constitutional: absent: Chills, Fever - Gastrointestinal Gastrointestinal: absent: Change in Bowel Habits, Nausea, Vomiting - Genitourinary Genitourinary: absent: Change in Urinary Stream - Integumentary Integumentary: Skin Ulcer - Neurological Neurological: Weakness (chronic) Past Patient History - Infectious Disease Hx of Infectious Diseases: None - Past Medical History & Family History Past Medical History?: Yes - Past Social History Smoking Status: Former Smoker - CARDIAC Hx Hypertension: Yes - PULMONARY Hx Respiratory Disorders: No - NEUROLOGICAL HX Cerebrovascular Accident: Yes Other/Comment: DYSPHAGIA, CONTRACTED BILAT LOWER EXT, (R) UE. - HEENT Hx HEENT Problems: No - RENAL Hx Chronic Kidney Disease: No - ENDOCRINE/METABOLIC Hx Endocrine Disorders: No - HEMATOLOGICAL/ONCOLOGICAL Hx Blood Disorders: No - INTEGUMENTARY Hx Dermatological Problems: No - MUSCULOSKELETAL/RHEUMATOLOGICAL Hx Falls: No - GASTROINTESTINAL Other/Comment: post trach. feeding via PEG. - GENITOURINARY/GYNECOLOGICAL Hx Genitourinary Disorders: No - PSYCHIATRIC Hx Substance Use: No - SURGICAL HISTORY Other/Comment: PEG TUBE AND TRACHEOSTOMY. - ANESTHESIA Hx Anesthesia: Yes Hx Anesthesia Reactions: No Hx Malignant Hyperthermia: No Meds Allergies/Adverse Reactions: Allergies Allergy/AdvReac Type Severity Reaction Status Date / Time No Known Allergies Allergy Verified 07/09/17 12:03 Physical Exam - Constitutional Appears: Non-toxic, No Acute Distress - Head Exam Head Exam: ATRAUMATIC, NORMAL INSPECTION, NORMOCEPHALIC - Eye Exam Eye Exam: EOMI, Normal appearance - ENT Exam ENT Exam: Mucous Membranes Moist, Normal Exam - Neck Exam Neck exam: Positive for: Full Rom, Normal Inspection - Respiratory Exam Respiratory Exam: NORMAL BREATHING PATTERN - Cardiovascular Exam Cardiovascular Exam: REGULAR RHYTHM, +S1, +S2 - GI/Abdominal Exam GI & Abdominal Exam: Soft. absent: Tenderness - Extremities Exam Extremities exam: Negative for: normal inspection (severely contracture upper and lower extremities, feet are internally rotated, toes are curled), pedal pulses present - Neurological Exam Additional comments: aphasic - Psychiatric Exam Additional comments: aphasic - Skin Skin Exam: Dry Additional comments: right foot slightly darker than left, both feet are cold, small ulcers with scabs over them Results - Vital Signs Recent Vital Signs: Last Vital Signs Temp 98.5 F 03/26/18 13:26 Pulse 82 03/26/18 16:10 Resp 18 03/26/18 16:10 BP 168/62 H 03/26/18 16:10 Pulse Ox 100 03/26/18 17:34 - Labs Result Diagrams: 03/26/18 14:09 03/26/18 14:09 Labs: Laboratory Results - last 24 hr 03/26/18 03/26/18 03/26/18 14:09 14:09 15:25 WBC 7.1 RBC 4.52 Hgb 15.0 Hct 43.0 MCV 95.1 H MCH 33.1 H MCHC 34.8 RDW 14.0 Plt Count 305 MPV 7.6 Neut % (Auto) 74.2 Lymph % (Auto) 15.8 L Cole % (Auto) 7.9 Eos % (Auto) 1.6 Baso % (Auto) 0.5 Neut # (Auto) 5.3 Lymph # (Auto) 1.1 Cole # (Auto) 0.6 Eos # (Auto) 0.1 Baso # (Auto) 0.0 PT 11.7 INR 1.1 APTT 36 H Sodium 142 Potassium 4.2 Chloride 102 Carbon Dioxide 28 Anion Gap 16 BUN 18 Creatinine 0.9 Est GFR ( Amer) > 60 Est GFR (Non-Af Amer) > 60 Random Glucose 118 H Calcium 9.7 Total Bilirubin 0.9 AST 37 ALT 18 L D Alkaline Phosphatase 109 Total Protein 9.1 H Albumin 4.2 Globulin 4.9 H Albumin/Globulin Ratio 0.9 L Blood Type Antibody Screen 03/26/18 15:25 WBC RBC Hgb Hct MCV MCH MCHC RDW Plt Count MPV Neut % (Auto) Lymph % (Auto) Cole % (Auto) Eos % (Auto) Baso % (Auto) Neut # (Auto) Lymph # (Auto) Cole # (Auto) Eos # (Auto) Baso # (Auto) PT INR APTT Sodium Potassium Chloride Carbon Dioxide Anion Gap BUN Creatinine Est GFR ( Amer) Est GFR (Non-Af Amer) Random Glucose Calcium Total Bilirubin AST ALT Alkaline Phosphatase Total Protein Albumin Globulin Albumin/Globulin Ratio Blood Type O POSITIVE Antibody Screen Negative Assessment & Plan - Assessment and Plan (Free Text) Assessment: 72M w/PVD Plan: Therapeutic anticoagulation No vascular surgery intervention at this time AMIRA Jones, PGY-2 - Date & Time Date: 03/26/18 Time: 17:20
--- NOTE | 2018-03-26 22:35 | CP.PCM.HP ---
History of Present Illness - History of Present Illness History of Present Illness: PGY-1 H&P note for Dr Sullivan service CC: Rt lower extremity pain HPI: Patient is a 72 yo male with past medical history of CVA, HTN, s/p tracheostomy, gastric tube placement came to the hospital today for right leg pain. Patient is poor historian. Lizet Valle was contacted via telephone to contribute to details of HPI. Rt lower extremity pain began 1 week ago, pain being the worst when touching lower extremity, especially from dorsal aspect of foot down to toes on the right side. Patient noticed small ulcers, as well as a change in skin color, noting the leg to be of darker color compared to the opposite extremity. Patient has been having difficulty sleeping due to pain. Lidocaine ointment was used for symptom relief, but did not last long. Patient denies fevers, chills, shortness of breath, chest pain, abdominal pain. PMD: Dr. Sullivan PMH: CVA left with weakness in right UE and both LE, HTN PSH: PEG tube insertion, tracheostomy Social Hx: former smoker (1ppd x 40 years, quit 1999), former ETOH use disorder (quit 8 years ago), denies illicit drug use, lives with his Family Hx: non-contributory Allergies: NKDA home meds: metoprolol 25mg PO BID and enalapril 20mg Po Qdaily, sertraline (Zoloft) 25mg BID Present on Admission - Present on Admission Any Indicators Present on Admission: No Review of Systems - Constitutional Constitutional: absent: Chills, Fever - Cardiovascular Cardiovascular: absent: Chest Pain, Dyspnea - Musculoskeletal Additional comments: Foot pain - Neurological Neurological: Weakness Past Patient History - Infectious Disease Hx of Infectious Diseases: None - Past Medical History & Family History Past Medical History?: Yes - Past Social History Smoking Status: Former Smoker Alcohol: Social Drugs: Denies Home Situation {Lives}: With Family - CARDIAC Hx Hypertension: Yes - PULMONARY Hx Respiratory Disorders: No - NEUROLOGICAL HX Cerebrovascular Accident: Yes Other/Comment: DYSPHAGIA, CONTRACTED BILAT LOWER EXT, (R) UE. - HEENT Hx HEENT Problems: No - RENAL Hx Chronic Kidney Disease: No - ENDOCRINE/METABOLIC Hx Endocrine Disorders: No - HEMATOLOGICAL/ONCOLOGICAL Hx Blood Disorders: No - INTEGUMENTARY Hx Dermatological Problems: No - MUSCULOSKELETAL/RHEUMATOLOGICAL Hx Falls: No - GASTROINTESTINAL Other/Comment: post trach. feeding via PEG. - GENITOURINARY/GYNECOLOGICAL Hx Genitourinary Disorders: No - PSYCHIATRIC Hx Substance Use: No - SURGICAL HISTORY Other/Comment: PEG TUBE AND TRACHEOSTOMY. - ANESTHESIA Hx Anesthesia: Yes Hx Anesthesia Reactions: No Hx Malignant Hyperthermia: No Meds Allergies/Adverse Reactions: Allergies Allergy/AdvReac Type Severity Reaction Status Date / Time No Known Allergies Allergy Verified 07/09/17 12:03 Physical Exam - Constitutional Appears: No Acute Distress - Head Exam Head Exam: ATRAUMATIC, NORMAL INSPECTION - Eye Exam Eye Exam: EOMI, Normal appearance - ENT Exam ENT Exam: Mucous Membranes Moist, Normal Exam - Neck Exam Neck exam: Positive for: Normal Inspection - Respiratory Exam Respiratory Exam: Clear to Auscultation Bilateral, NORMAL BREATHING PATTERN. absent: Respiratory Distress - Cardiovascular Exam Cardiovascular Exam: REGULAR RHYTHM - GI/Abdominal Exam GI & Abdominal Exam: Soft. absent: Tenderness - Extremities Exam Additional comments: upper and lower extremity contracted right side, feet internally rotated tenderness on dorsal aspect of foot and hallux, discoloration noted on right lower extremity - Neurological Exam Neurological exam: Alert Additional comments: AAOx2 - Psychiatric Exam Psychiatric exam: Normal Affect, Normal Mood - Skin Skin Exam: Intact, Normal Color, Warm Additional comments: ulcer located on right distal 1st phalanx Results - Vital Signs Recent Vital Signs: Last Vital Signs Temp 98.5 F 03/26/18 13:26 Pulse 82 03/26/18 16:10 Resp 18 03/26/18 16:10 BP 171/78 H 03/26/18 20:06 Pulse Ox 100 03/26/18 18:50 - Labs Result Diagrams: 03/26/18 14:09 03/26/18 14:09 Labs: Laboratory Results - last 24 hr 03/26/18 03/26/18 03/26/18 14:09 14:09 15:25 WBC 7.1 RBC 4.52 Hgb 15.0 Hct 43.0 MCV 95.1 H MCH 33.1 H MCHC 34.8 RDW 14.0 Plt Count 305 MPV 7.6 Neut % (Auto) 74.2 Lymph % (Auto) 15.8 L [place] % (Auto) 7.9 Eos % (Auto) 1.6 Baso % (Auto) 0.5 Neut # (Auto) 5.3 Lymph # (Auto) 1.1 [place] # (Auto) 0.6 Eos # (Auto) 0.1 Baso # (Auto) 0.0 PT 11.7 INR 1.1 APTT 36 H Sodium 142 Potassium 4.2 Chloride 102 Carbon Dioxide 28 Anion Gap 16 BUN 18 Creatinine 0.9 Est GFR ( Amer) > 60 Est GFR (Non-Af Amer) > 60 POC Glucose (mg/dL) Random Glucose 118 H Calcium 9.7 Total Bilirubin 0.9 AST 37 ALT 18 L D Alkaline Phosphatase 109 Total Protein 9.1 H Albumin 4.2 Globulin 4.9 H Albumin/Globulin Ratio 0.9 L Blood Type Antibody Screen 03/26/18 03/26/18 15:25 21:13 WBC RBC Hgb Hct MCV MCH MCHC RDW Plt Count MPV Neut % (Auto) Lymph % (Auto) [place] % (Auto) Eos % (Auto) Baso % (Auto) Neut # (Auto) Lymph # (Auto) [place] # (Auto) Eos # (Auto) Baso # (Auto) PT INR APTT Sodium Potassium Chloride Carbon Dioxide Anion Gap BUN Creatinine Est GFR ( Amer) Est GFR (Non-Af Amer) POC Glucose (mg/dL) 91 Random Glucose Calcium Total Bilirubin AST ALT Alkaline Phosphatase Total Protein Albumin Globulin Albumin/Globulin Ratio Blood Type O POSITIVE Antibody Screen Negative Assessment & Plan - Assessment and Plan (Free Text) Assessment: 72M with past medical history of CVA with right leg pain due to ischemia to the limb Plan: Right lower extremity pain and dusking 2/2 arterial insufficiency/ischemia - Doppler U/S - no arterial flow noted on the right lower extremity - [facility] surgery consult - Dr Varela - help is appreciated Therapeutic anticoagulation No vascular surgery intervention at this time - start Heparin drip -start Plavix -F/U Blood Cx F/U CBC, CMP Hx of CVA -Plavix -Neuro checks Q4 HTN -BP: 193/75 on admission, repeat 171/78 - BUN/Cr: 18/.9 -Continue Enalapril, Metoprolol -start HCTZ 25 mg PO Q daily - F/U CBC, CMP History of depression -Continue zoloft 25 mg PO BID Px GI: none DVT: Heparin drip, plavix Tube feeds Glucerna 1.5 start rate 10, increase 10, goal 40 Pain management: gabapentin 200mg PO HS, 100mg PO TID Fall precautions Neuro checks Q4 Disposition: Lizet Valle contact number is [phone]. Both pt and speak faroese. Plan discussed with Dr Laurie Hollingsworth, PGY-1 - Date & Time Date: 03/26/18 Time: 18:30
[2018-03-26] MEDS ORDERED: Heparin25000 units/250ml 1/2NS 25,000 UNITS/250 ML BAG IV PRN (23:23)
[2018-03-27 01:32] VITALS: RESP 20
[2018-03-27] MEDS ORDERED: Heparin25000 units/250ml 1/2NS 25,000 UNITS/250 ML BAG IV PRN (01:39)
[2018-03-27 08:46] LABS: BASO % 0.4 % (0.0-2.0); EOS # 0.1 K/uL (0.0-0.7); EOS % 2.2 % (0.0-4.0); HEMOGLOBIN 13.4 g/dL (12.0-18.0); LYMPH # 1.3 K/uL (1.0-4.3); LYMPH % 20.1 % (20.0-40.0); MEAN CELL VOLUME 93.6 fL (80.0-94.0); MEAN CORPUSCULAR HEMOGLOBIN 32.5 pg (27.0-31.0); MEAN CORPUSCULAR HGB CONC 34.8 g/dL (33.0-37.0); MEAN PLATELET VOLUME 7.8 fL (7.2-11.7); MONO # 0.5 K/uL (0.0-0.8); MONO % 7.1 % (0.0-10.0); NEUT # 4.5 K/uL (1.8-7.0); NEUT % 70.2 % (50.0-75.0); NRBC % 0.1 % (0.0-2.0); RBC 4.13 Mil/uL (4.40-5.90); RED CELL DISTRIBUTION WIDTH 13.8 % (11.5-14.5); WHITE BLOOD COUNT 6.3 K/uL (4.8-10.8)
[2018-03-27 08:51] LABS: ALB/GLOB RATIO 0.9 (1.0-2.1); ALBUMIN 3.6 g/dL (3.5-5.0); ALT/SGPT 25 U/L (21-72); AST/SGOT 22 U/L (17-59); BLOOD UREA NITROGEN 21 mg/dL (9-20); CALCIUM 9.7 mg/dl (8.6-10.4); GFR NON-AFRICAN AMERICAN > 60
[2018-03-27] MEDS: Heparin25000 units/250ml 1/2NS 25,000 UNITS/250 ML BAG IV PRN (11:40)
--- NOTE | 2018-03-27 18:05 | CP.PCM.PN ---
Subjective - Date & Time of Evaluation Date of Evaluation: 03/27/18 Time of Evaluation: 07:00 - Subjective Subjective: PGY2 Progress Note for Dr. Sullivan Patient seen and examined at bedside. Patient with tracheostomy, but answers questions with shaking his head. Patient admits to right foot pain. Patient denies any headache, chest pain, abdominal pain, nausea, vomiting, constipation, or diarrhea. Objective - Vital Signs/Intake and Output Vital Signs (last 24 hours): Temp Pulse Resp BP Pulse Ox 97.7 F 61 20 195/78 H 97 03/27/18 15:06 03/27/18 15:06 03/27/18 15:06 03/27/18 16:28 03/27/18 15:06 Intake and Output: 03/27/18 03/27/18 06:59 18:59 Intake Total 180 365 Output Total 300 Balance 180 65 - Medications Medications: Current Medications Clopidogrel Bisulfate (Plavix) 75 mg PEG DAILY [facility] Enalapril Maleate (Vasotec) 20 mg PEG DAILY [facility] Last Admin: 03/27/18 10:35 Dose: 20 mg Gabapentin (Neurontin) 100 mg PO TID [facility] Last Admin: 03/27/18 13:22 Dose: 100 mg Gabapentin (Neurontin) 200 mg PEG HS [facility] Hydrochlorothiazide (Hydrodiuril) 25 mg PEG DAILY [facility] Last Admin: 03/27/18 10:36 Dose: 25 mg Heparin Sodium/Sodium Chloride (Heparin 83164 Units/250ml 1/2 Normal Saline) 25,000 units in 250 mls @ 7.164 mls/hr IV .Q24H PRN; Protocol PRN Reason: PROTOCOL Last Admin: 03/27/18 11:40 Dose: 12 units/kg/hr, 7.164 mls/hr Influenza Virus Vaccine (Fluzone Quad [id number]) 60 mcg IM .ONCE ONE Stop: 03/28/18 10:01 Metoprolol Tartrate (Lopressor) 25 mg PEG BID [facility] Last Admin: 03/27/18 10:35 Dose: 25 mg Pneumococcal Polyvalent Vaccine (Pneumovax 23 Vaccine) 0.5 ml IM .ONCE ONE Stop: 03/29/18 10:01 Sertraline HCl (Zoloft) 25 mg PO BID [facility] Last Admin: 03/27/18 10:35 Dose: 25 mg - Labs Labs: 03/27/18 08:30 03/27/18 08:30 PT 11.7 SECONDS (9.7-12.2) 03/26/18 15:25 INR 1.1 03/26/18 15:25 APTT 63 SECONDS (21-34) H D 03/27/18 15:25 - Constitutional Appears: Non-toxic, No Acute Distress - Head Exam Head Exam: ATRAUMATIC, NORMAL INSPECTION, NORMOCEPHALIC - Eye Exam Eye Exam: EOMI, Normal appearance - ENT Exam ENT Exam: Mucous Membranes Moist - Neck Exam Additional comments: tracheostomy - Respiratory Exam Respiratory Exam: Clear to Ausculation Bilateral, NORMAL BREATHING PATTERN - Cardiovascular Exam Cardiovascular Exam: REGULAR RHYTHM, RRR, +S1, +S2 - GI/Abdominal Exam GI & Abdominal Exam: Soft, Normal Bowel Sounds Additional comments: peg tube in place - Extremities Exam Extremities Exam: absent: Normal Inspection Additional comments: right arm contracture and bilateral feet contractures pedal pulses intact - Neurological Exam Neurological Exam: Alert, Awake, Oriented x3 - Psychiatric Exam Psychiatric exam: Normal Affect, Normal Mood - Skin Additional comments: ulcer located on right distal 1st phalanx right LE cooler than left Assessment and Plan - Assessment and Plan (Free Text) Assessment: 72M with past medical history of CVA with right leg pain 2/2 PVD Plan: PVD and PAD - Doppler U/S - no arterial flow noted on the right lower extremity - [facility] surgery consult - Dr Varela - help is appreciated Therapeutic anticoagulation No vascular surgery intervention at this time -Heparin drip -start Plavix -Blood Cx negative Hx of CVA -Plavix -Neuro checks Q4 HTN -BP: 193/75 on admission, repeat 171/78 - BUN/Cr: 18/.9 -Continue Enalapril, Metoprolol -start HCTZ 25 mg PO Q daily History of depression -Continue zoloft 25 mg PO BID Px GI: none DVT: Heparin drip, plavix Tube feeds Glucerna 1.5 start rate 10, increase 10, goal 40 Pain management: gabapentin 200mg PO HS, 100mg PO TID Fall precautions Neuro checks Q4 Disposition: Lizet Valle contact number is [phone]. Both pt and speak ukrainian. Plan discussed with Dr Sullivan
[2018-03-28] MEDS: Heparin25000 units/250ml 1/2NS 25,000 UNITS/250 ML BAG IV PRN (00:13)
[2018-03-28 08:51] LABS: BASO % 0.8 % (0.0-2.0); EOS # 0.2 K/uL (0.0-0.7); EOS % 2.9 % (0.0-4.0); HEMOGLOBIN 13.1 g/dL (12.0-18.0); LYMPH # 1.2 K/uL (1.0-4.3); LYMPH % 19.6 % (20.0-40.0); MEAN CELL VOLUME 95.1 fL (80.0-94.0); MEAN CORPUSCULAR HEMOGLOBIN 33.1 pg (27.0-31.0); MEAN CORPUSCULAR HGB CONC 34.8 g/dL (33.0-37.0); MEAN PLATELET VOLUME 8.5 fL (7.2-11.7); MONO # 0.5 K/uL (0.0-0.8); MONO % 8.4 % (0.0-10.0); NEUT # 4.1 K/uL (1.8-7.0); NEUT % 68.3 % (50.0-75.0); NRBC % 0.1 % (0.0-2.0); RBC 3.98 Mil/uL (4.40-5.90); RED CELL DISTRIBUTION WIDTH 13.8 % (11.5-14.5)
[2018-03-28 09:16] LABS: ALB/GLOB RATIO 0.9 (1.0-2.1); ALBUMIN 3.6 g/dL (3.5-5.0); ALT/SGPT 27 U/L (21-72); AST/SGOT 25 U/L (17-59); BLOOD UREA NITROGEN 25 mg/dL (9-20); GFR NON-AFRICAN AMERICAN > 60
[2018-03-28] MEDS ORDERED: Influenza Vaccine 60 MCG/0.5 ML SYR (3 yr & up) IM ONE (10:00)
[2018-03-28] MEDS ORDERED: Pneumococcal 23-Valent Vaccine IM ONE (12:45)
[2018-03-28 17:55] VITALS: BP 200/76; PULSE 58; TEMP 98.7; O2SAT 96
--- NOTE | 2018-03-28 18:26 | CP.PCM.DIS ---
Provider - Provider Date of Admission: 03/26/18 15:31 Attending physician: Shane Sullivan Jr, MD Consults: Al (vascular surgery) Time Spent in preparation of Discharge (in minutes): 40 Diagnosis - Discharge Diagnosis (1) Arterial insufficiency of lower extremity Status: Chronic (2) Hypertension Status: Chronic (3) Tracheostomy care Status: Chronic (4) History of CVA (cerebrovascular accident) Status: Chronic Hospital Course - Lab Results Lab Results: Micro Results 03/26/18 14:47 Blood Blood Culture - Preliminary NO GROWTH AFTER 48 HOURS 03/26/18 14:47 Blood Blood Culture - Preliminary NO GROWTH AFTER 48 HOURS Most Recent Lab Values WBC 6.0 K/uL (4.8-10.8) 03/28/18 08:38 RBC 3.98 Mil/uL (4.40-5.90) L 03/28/18 08:38 Hgb 13.1 g/dL (12.0-18.0) 03/28/18 08:38 Hct 37.8 % (35.0-51.0) 03/28/18 08:38 MCV 95.1 fL (80.0-94.0) H 03/28/18 08:38 MCH 33.1 pg (27.0-31.0) H 03/28/18 08:38 MCHC 34.8 g/dL (33.0-37.0) 03/28/18 08:38 RDW 13.8 % (11.5-14.5) 03/28/18 08:38 Plt Count 284 K/uL (130-400) 03/28/18 08:38 MPV 8.5 fL (7.2-11.7) 03/28/18 08:38 Neut % (Auto) 68.3 % (50.0-75.0) 03/28/18 08:38 Lymph % (Auto) 19.6 % (20.0-40.0) L 03/28/18 08:38 [place] % (Auto) 8.4 % (0.0-10.0) 03/28/18 08:38 Eos % (Auto) 2.9 % (0.0-4.0) 03/28/18 08:38 Baso % (Auto) 0.8 % (0.0-2.0) 03/28/18 08:38 Neut # (Auto) 4.1 K/uL (1.8-7.0) 03/28/18 08:38 Lymph # (Auto) 1.2 K/uL (1.0-4.3) 03/28/18 08:38 [place] # (Auto) 0.5 K/uL (0.0-0.8) 03/28/18 08:38 Eos # (Auto) 0.2 K/uL (0.0-0.7) 03/28/18 08:38 Baso # (Auto) 0.0 K/uL (0.0-0.2) 03/28/18 08:38 PT 11.7 SECONDS (9.7-12.2) 03/26/18 15:25 INR 1.1 03/26/18 15:25 APTT 62 SECONDS (21-34) H D 03/28/18 08:38 Sodium 141 mmol/L (132-148) 03/28/18 08:38 Potassium 4.2 mmol/L (3.6-5.2) 03/28/18 08:38 Chloride 102 mmol/L (98-107) 03/28/18 08:38 Carbon Dioxide 29 mmol/L (22-30) 03/28/18 08:38 Anion Gap 14 (10-20) 03/28/18 08:38 BUN 25 mg/dL (9-20) H 03/28/18 08:38 Creatinine 1.0 mg/dL (0.8-1.5) 03/28/18 08:38 Est GFR ( Amer) > 60 03/28/18 08:38 Est GFR (Non-Af Amer) > 60 03/28/18 08:38 POC Glucose (mg/dL) 91 mg/dL (65-110) 03/28/18 11:18 Random Glucose 91 mg/dL (75-110) 03/28/18 08:38 Calcium 10.0 mg/dl (8.6-10.4) 03/28/18 08:38 Total Bilirubin 0.3 mg/dL (0.2-1.3) 03/28/18 08:38 AST 25 U/L (17-59) 03/28/18 08:38 ALT 27 U/L (21-72) 03/28/18 08:38 Alkaline Phosphatase 110 U/L (38-126) 03/28/18 08:38 Total Protein 7.7 g/dL (6.3-8.3) 03/28/18 08:38 Albumin 3.6 g/dL (3.5-5.0) 03/28/18 08:38 Globulin 4.1 gm/dL (2.2-3.9) H 03/28/18 08:38 Albumin/Globulin Ratio 0.9 (1.0-2.1) L 03/28/18 08:38 Blood Type O POSITIVE 03/26/18 15:25 Antibody Screen Negative 03/26/18 15:25 - Hospital Course Hospital Course: HPI: Patient is a 72 yo male with past medical history of CVA, HTN, s/p tracheostomy, gastric tube placement came to the hospital today for right leg pain. Patient is poor historian. Lizet Valle was contacted via telephone to contribute to details of HPI. Rt lower extremity pain began 1 week ago, pain being the worst when touching lower extremity, especially from dorsal aspect of foot down to toes on the right side. Patient noticed small ulcers, as well as a change in skin color, noting the leg to be of darker color compared to the opposite extremity. Patient has been having difficulty sleeping due to pain. Lidocaine ointment was used for symptom relief, but did not last long. Patient denies fevers, chills, shortness of breath, chest pain, abdominal pain. Patient admitted for right leg pain with decreased pulses and dusky color. Doppler showed no arterial flow of right leg. Dr. Melendez consulted. No vascul ar surgery to be done. Patient put on therapeutic anticoagulation with heparin drip. Patient then switched to Plavix to be discharged on. Upon discharge patient had less pain in right foot and pedal pulses. During hospitalization, patient's blood pressure was elevated. Patient's enalapril was increased to BID, HCTZ 25mg po was started, and Norvasc 10mg po started. Patient to follow up with PMD and monitor blood pressures at home. Patient was continued on medications for his chronic conditions of depression and pain. Patient was continued on Glucerna 1.5mg through peg tube. This is a summary of the patient's hospital course, please see chart for details. Discharge Exam - Additional Findings Additional findings: - Constitutional Appears: Non-toxic, No Acute Distress - Head Exam Head Exam: ATRAUMATIC, NORMAL INSPECTION, NORMOCEPHALIC - Eye Exam Eye Exam: EOMI, Normal appearance - ENT Exam ENT Exam: Mucous Membranes Moist - Neck Exam Additional comments: tracheostomy - Respiratory Exam Respiratory Exam: Clear to Ausculation Bilateral, NORMAL BREATHING PATTERN - Cardiovascular Exam Cardiovascular Exam: REGULAR RHYTHM, RRR, +S1, +S2 - GI/Abdominal Exam GI & Abdominal Exam: Soft, Normal Bowel Sounds Additional comments: peg tube in place - Extremities Exam Extremities Exam: absent: Normal Inspection Additional comments: right arm contracture and bilateral feet contractures pedal pulses intact - Neurological Exam Neurological Exam: Alert, Awake, Oriented x3 - Psychiatric Exam Psychiatric exam: Normal Affect, Normal Mood - Skin Additional comments: ulcer located on right distal 1st phalanx Discharge Plan - Discharge Medications Prescriptions: amLODIPine [Norvasc] 10 mg PO DAILY #30 tab Clopidogrel [Plavix] 75 mg PO DAILY #30 tab Enalapril Maleate [Vasotec] 20 mg PEG Q12H #60 tab Gabapentin [Neurontin] 100 mg PO TID #90 cap Gabapentin [Neurontin] 200 mg PEG HS #30 cap hydroCHLOROthiazide [Hydrodiuril] 25 mg PEG DAILY #30 tab Metoprolol Tartrate [Lopressor] 25 mg PEG BID #60 tab Sertraline [Zoloft] 25 mg PEG BID #60 tab - Follow Up Plan Condition: GUARDED Disposition: HOME/ ROUTINE Instructions: Peripheral Vascular (Arterial) Disease (DC), Amlodipine, Clopidogrel, Enalapril, Going Home on Blood Thinners , Making Everyday Tasks Easier With Pain Additional Instructions: Patient stable for discharge as per Dr. Sullivan. Patient to continue all home medications. Patient to start Norvasco 10mg daily. Patient to increase Enalapril 20mg to twice a day (from once a day) Patient to start Plavix 75mg daily. Patient to follow up with PMD within one week. Patient to return to ER if symptoms return. Patient explained instructions who understands and agrees. Referrals: Shane Sullivan Jr., MD [Medical Doctor] -
--- NOTE | 2018-03-29 10:30 | VASCLAB ---
Date of service: 03/26/2018 PROCEDURE: Right Lower Extremity Venous Duplex Exam. HISTORY: r/o DVT PRIORS: None. TECHNIQUE: Right common femoral, femoral, popliteal and posterior tibial, peroneal and great saphenous veins were evaluated. Flow was assessed with color Doppler, compressibility, assessment of phasic flow and augmentation response. Report prepared by DARIAN Moffett, RVT FINDINGS: RIGHT: 1. Common Femoral Vein: 1.1. Compressibility - Fully compressible: Thrombus - None: Flow - Phasic: Augmentation -Normal: Reflux - None. 2. Femoral Vein: 2.1. Compressibility - Fully compressible: Thrombus - None: Flow - Phasic: Augmentation -Normal: Reflux - None. 3. Popliteal Vein: 3.1. Compressibility - Fully compressible: Thrombus - None: Flow - Phasic: Augmentation -Normal: Reflux - None. 4. Posterior Tibial Vein: 4.1. Compressibility - Fully compressible: Thrombus - None: Flow - Phasic: Augmentation -Normal: Reflux - None. 5. Peroneal Vein: 5.1. Compressibility - Fully compressible: Thrombus - None: Flow - Phasic: Augmentation -Normal: Reflux - None. 6. Great Saphenous Vein: 6.1. Compressibility - Fully compressible: Thrombus -None: Flow - Phasic: Augmentation - Normal: Reflux - None. OTHER FINDINGS: IMPRESSION: No evidence of deep or superficial vein thrombosis of the right lower extremity with excellent venous flow. Normal valve function noted of the right side. Normal venous flow noted in the left common femoral vein.
--- NOTE | 2018-03-29 11:55 | VASCLAB ---
Date of service: 03/26/2018 PROCEDURE: Right Lower Extremity Arterial Exam. HISTORY: vascular assessment of RLE COMPARISON: None available. TECHNIQUE: Grayscale and duplex Doppler evaluation of the right common femoral, femoral, profunda femoral, popliteal, posterior tibial, anterior tibial and dorsalis pedis arteries was performed. Report prepared by DARIAN Moffett, RVT FINDINGS: RIGHT LOWER EXTREMITY: * Common Femoral Artery: Peak Systolic Velocity - 0: Doppler Waveform: Absent: Plaque description - Calcific * Profunda Femoral Artery: Peak Systolic Velocity - 0: Doppler Waveform: Absent: Plaque description - Calcific * Femoral Artery o Proximal Segment: Peak Systolic Velocity - 0: Doppler Waveform: Absent: Plaque description - Calcific o Middle Segment: Peak Systolic Velocity - 0: Doppler Waveform: Absent: Plaque description - Calcific o Distal Segment: Peak Systolic Velocity - 0: Doppler Waveform: Absent: Plaque description - Calcific * Popliteal Artery o Proximal Segment: Peak Systolic Velocity - 0: Doppler Waveform: Absent: Plaque description - Calcific o Middle Segment: Peak Systolic Velocity - 0: Doppler Waveform: Absent: Plaque description - Calcific o Distal Segment: Peak Systolic Velocity - 0: Doppler Waveform: Absent: Plaque description - Calcific * Posterior Tibial Artery: Peak Systolic Velocity - 0: Doppler Waveform: Absent: Plaque description - Calcific * Anterior Tibial Artery: Peak Systolic Velocity - 0: Doppler Waveform: Absent: Plaque description - Calcific * Dorsalis Pedis Artery: Peak Systolic Velocity - 0: Doppler Waveform: Triphasic.: Plaque description - Calcific OTHER FINDINGS: Dr. Rey notified about the findings. IMPRESSION: Evidence of clinically severe hemodynamic significant arterial insufficiency in the right lower extremity.
== END 2018-03-28 17:30 | disposition home or self-care (01) | DRG 130 ==
LOC: C.ER 13:16 → C.9E 15:31 → C.3T 15:58
PROVIDERS: ADMIT Internal Medicine; ATTEND Internal Medicine
PROC: 3E0G76Z Introduction of Nutritional Substance into Upper GI, Via Natural or Artificial Opening (ICD-10-PCS; principal; 2018-03-26)
DX: I73.9 Peripheral vascular disease, unspecified (principal); L97.511 Non-pressure chronic ulcer of other part of right foot limited to breakdown of skin; I77.1 Stricture of artery; I10 Essential (primary) hypertension; M62.49 Contracture of muscle, multiple sites; I69.351 Hemiplegia and hemiparesis following cerebral infarction affecting right dominant side; F32.9 Major depressive disorder, single episode, unspecified; Z87.891 Personal history of nicotine dependence; I69.391 Dysphagia following cerebral infarction; I69.320 Aphasia following cerebral infarction; Z93.1 Gastrostomy status; Z93.0 Tracheostomy status